=== PATIENT | male | born 1970 | race African-American/Black ===

== ENCOUNTER 2018-01-15 14:11 | Emergency (ER) | payer MEDICAID ==
[~2018-01-15] VITALS: Ht 182.9 cm; Wt 60.0 kg
[~2018-01-15 14:11] MED LIST: LEVO500T2 PO; VANC125C4 IV
[2018-01-15 17:06] LABS: BASOPHILS % 0.3 % (0.0-2.0); EOSINOPHILS % 0.4 % (0.0-5.0); HEMATOCRIT. 29.4 % (42.0-52.0); HEMOGLOBIN. 9.4 g/dL (14.0-18.0); LYMPHOCYTES % 10.4 % (20.0-50.0); MEAN CORPUSCULAR HEMOGLOBIN 22.8 pg (28.0-32.0); MEAN CORPUSCULAR VOLUME 71.4 fL (80.0-94.0); MEAN PLATELET VOLUME 6.9 fl (7.4-10.4); MONOCYTES % 8.8 % (2.0-8.0); NEUTROPHILS % 80.1 % (40.0-76.0); PLATELET 550 x1000/uL (130-400); RED BLOOD CELL COUNT 4.11 mill/uL (4.7-6.1)
[2018-01-15 17:10] LABS: CHLORIDE 94 mEq/L (98-107)
[2018-01-15 17:15] LABS: INR 1.2; PARTIAL THROMBOPLASTIN TIME 37.8 sec (23.4-31.0)
[2018-01-15 18:10] VITALS: BP 120/71
== END 2018-01-15 18:12 | disposition home or self-care (01) ==
LOC: ER 16:07
DX: T82.838A Hemorrhage due to vascular prosthetic devices, implants and grafts, initial encounter (principal); Y84.8 Other medical procedures as the cause of abnormal reaction of the patient, or of later complication, without mention of misadventure at the time of the procedure; Y92.9 Unspecified place or not applicable; K21.9 Gastro-esophageal reflux disease without esophagitis
CPT/HCPCS: 36415; 71045; 73060; 80053; 85025; 85610; 85730; 99285